=== PATIENT | female | born 1985 | race Caucasian/White ===

== ENCOUNTER → 2020-07-31 | Outpatient (CLI) | payer OTHER ==
[2020-07-31 17:49] LABS: BASO # 0.07 (0.02-0.10); EOS # 0.28 (0.04-0.40); EOS % 2.2 % (1.0-5.0); HEMATOCRIT 46.2 % (37.0-47.0); HEMOGLOBIN 15.9 g/dL (12.5-16.0); LYMPH# 2.57 (1.50-4.00); MEAN CELL VOLUME 87 fl (78-100); MEAN CORPUSCULAR HEMOGLOBIN 30 pg (27-31); MEAN CORPUSCULAR HGB CONC 34 g/dL (33-37); MEAN PLATELET VOLUME 10.7 fl (7.4-10.4); MONO # 0.75 (0.20-0.80); NEU # 9.26 (1.40-6.50); PLATELET COUNT 347 K/mm3 (130-400); RED BLOOD COUNT 5.34 M/mm3 (4.10-5.30); RED CELL DISTRIBUTION WIDTH 12.9 % (11.5-14.5)
[2020-07-31 17:53] LABS: ALBUMIN 4.1 g/dL (3.5-5.0); POTASSIUM 4.6 mmol/L (3.5-5.1)
[2020-07-31 17:54] LABS: CALCIUM 9.3 mg/dL (8.3-10.5)
[2020-07-31 17:55] LABS: TOTAL PROTEIN 7.7 g/dL (6.4-8.3)
[2020-07-31 17:57] LABS: TOTAL BILIRUBIN 0.5 mg/dL (0.2-1.2)
== END ==
LOC: LAB 17:10
DX: K12.2 Cellulitis and abscess of mouth (principal)